=== PATIENT | male | born 1985 | race Caucasian/White ===

== ENCOUNTER 2023-01-10 09:24 | Outpatient (CLI) | payer OTHER ==
[2023-01-10 22:21] VITALS: BP 118/70
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
== END 2023-01-10 09:25 | disposition home or self-care (01) ==
LOC: SC 09:24
PROVIDERS: ATTEND Internal Medicine Pulmonary Disease
DX: G47.8 Other sleep disorders (principal)
CPT/HCPCS: 99202; 99212

== ENCOUNTER 2023-03-17 20:12 | Outpatient (CLI) | payer OTHER | END 2023-03-17 20:13 | disposition home or self-care (01) | LOC: SC 20:12 | PROVIDERS: ATTEND Internal Medicine Pulmonary Disease | DX: G47.33 Obstructive sleep apnea (adult) (pediatric) (principal); G47.61 Periodic limb movement disorder | CPT/HCPCS: 95810 ==

== ENCOUNTER 2023-05-20 08:27 | Outpatient (CLI) | payer OTHER ==
--- NOTE | 2023-05-20 08:59 | SLEEP CARE CONSULTATION ---
Information from patient questionnaire entered by Yohana Glynn. I have reviewed and concur with the information entered by Yohana Glynn. This document represents the service I personally performed and the decisions made by , Lindsey Hammond ARNP. History of Present Illness Service Date and Time: 05/20/2023826 Previous diagnosis: Mild, Obstructive Sleep Apnea-Hypopnea Syndrome AHI: 5.4 ( with RDI 20 in 2022) Reason for follow up: first compliance Equipment type: CPAP (RESMED 11, s/u 03/2023) Equipment obtained from: Other ([facility]; got initial supplies) Mask style: Nasal ([place]) Backup mask available: No (will keep old mask when replaced) Last cushion change: 1 month Prior sleep studies: Yes ([place]) Type of Sleep Study: Polysomnography (COMPLETED 03/17/23) HPI additional information: CELIA MOCTEZUMA was diagnosed to have mild, AHI 5.4, obstructive sleep apnea- hypopnea syndrome and returned today for CPAP therapy first compliance follow- up. Sleep Study - Results Type of Sleep Study: Polysomnography (COMPLETED 03/17/23) Prior sleep studies: Yes ([place]) CPAP Compliance Data - Data Reviewed with Patient Average duration of nightly device use: 7 HRS Compliance rate %: 93 (04/19/23-05/18/23; 29/30 days used) Current pressure setting (cmH2O): 4-15 (median 5.1, avg 7.4, max 8.9) Average residual AHI: 1.4 (RERA 0.0) Central apnea: 0.6 Obstructive apnea: 0.5 Hypopnea: 0.3 Average large leak: 0.5 L/min Subjective Patient concerns: reports: mask discomfort (rash, mask cushion pushing on top of nose), mask leak noise, other (rash on face). denies: aerophagia, air blowing in eyes, condensation in mask/hose, nasal congestion, dry mouth, nose, throat, epistaxis Observed to snore while using device: No Current pressure setting perceived as: comfortable On therapy, patient: reports: sleeping better, awakening more refreshed, being more awake and alert during the day, more rested overall. denies: drowsiness while driving Initial [place] Sleepiness Scale score: 11 (01/10/23) Current [place] Sleepiness Scale score: 8 (05/20/23) Allergies and Home Medications Known drug allergies: No Drug allergies reviewed: Yes Home medication list reviewed: Yes (no changes) Allergy and home medication list: Allergies No Known Drug Allergies Allergy (Verified 05/19/23 13:37) Review of Systems Review of systems same as previous: Yes (no changes) Physical Exam Vital signs obtained and entered by: YOAHNA Baron MA Blood Pressure: 118/72 (LEFT ARM) Cuff size: regular Heart Rate: 52 O2 Saturation: 98 Height: 6 ft 4 in Weight: 222 lb Weight change since last visit: 4 lbs loss Body Mass Index: 27.0 BMI Classification: Overweight Impression and Plan 1. Obstructive Sleep Apnea-Hypopnea Syndrome, mild, with good treatment compliance and good apnea control. On CPAP therapy, the patient has better sleep quality and is more rested overall. He has had some redness around his nose from where the [place] mask sits on his face. He would like to try a different style and he states he will contact his DME for assistance with that. I gave him the names of a couple of masks that he saw in the office and would like to try. The patients pressure will be changed to autoCPAP 5-9 cmH20 to reflect pressures being used. Patient advised to contact me if pressure change is uncomfortable so that it can be adjusted. Goals for apnea control discussed. Patient also asking for assistance with getting a battery backup because he goes camping a lot and wants to be able to use his CPAP. I will add this to his prescription today. Patient was very grateful for helping him to get better rest. Patient's apnea severity and rationale for treatment to reduce apnea, improve sleep quality and reduce cardiovascular and cerebrovascular events was reviewed. I also reviewed the benefit of consistent device use of CPAP for cerebrovascular disease (stro ke), depression and anxiety. 2. Overweight, unspecified. Currently patients BMI is 27. He has lost weight. Obesity increases the risk of apnea, CPAP pressure requirements and overall health risks especially cardiovascular and diabetes. Thus patient is advised to continue to try to lose weight. * Change auto CPAP pressure to 5-9 cmH2O * Battery backup for Airsense 11 * Notify me if snoring with mask or feeling that the pressure is too much or too little * Attempt to lose weight * Call this office if any problems using CPAP * Return for follow up in 1-2 months, or sooner if concerns arise Counseling Topics: Weight loss health impact Follow up with Sleep Care in: 1-2 months Visit Type: In Office Time Spent with Patient (minutes): 22 Provider Statement: I spent 100% of the Face to Face Visit with the patient with greater than 50% spent counseling the patient and coordination of care.
[2023-05-20 09:27] VITALS: BP 118/72
== END 2023-05-20 08:28 | disposition home or self-care (01) ==
LOC: SC 08:27
PROVIDERS: ATTEND Nurse Practitioner Family
DX: G47.33 Obstructive sleep apnea (adult) (pediatric) (principal); E66.3 Overweight; Z68.27 Body mass index [BMI] 27.0-27.9, adult
CPT/HCPCS: 99212; 99213

== ENCOUNTER 2023-06-01 07:45 | Outpatient (CLI) | payer OTHER | END 2023-06-01 08:00 | disposition home or self-care (01) | LOC: LAB.N 07:45 | PROVIDERS: ATTEND Family Medicine | DX: R19.7 Diarrhea, unspecified (principal) | CPT/HCPCS: 83993; 87045; 87046; 87329; 87427; 87493 ==

== ENCOUNTER 2023-07-27 08:31 | Outpatient (CLI) | payer OTHER ==
--- NOTE | 2023-07-27 08:53 | Sleep Patient Instructions ---
Sleep Center Visit Summary - Patient Visit Information Reason for Visit: Two month follow up - Patient Instructions Additional Instructions: You were here for follow up of CPAP therapy. You will be continued on CPAP therapy with pressure at 5-9 cmH2O. You should follow up with sleep care in 3 months. You may contact us sooner for any questions or concerns. - Clinic Information Contact: [facility] [address] [place] [email or web address] T: [phone]
--- NOTE | 2023-07-27 08:59 | SLEEP CARE CONSULTATION ---
Information from patient questionnaire entered by Yohana Glynn. I have reviewed and concur with the information entered by Yohaan Glynn. This document represents the service I personally performed and the decisions made by , Lindsey Hammond ARNP. History of Present Illness Service Date and Time: 07/27/2023 0831 Previous diagnosis: Mild, Obstructive Sleep Apnea-Hypopnea Syndrome AHI: 5.4 ( with RDI 20 in 2022) Reason for follow up: other (2 MONTH F/U) Equipment type: CPAP (RESMED 11, s/u 03/2023) Equipment obtained from: Other ([facility]; getting supplies) Mask style: Nasal (3B Si[place]) Backup mask available: No (will keep old mask when replaced) Last cushion change: 1 week Prior sleep studies: Yes ([place]) Type of Sleep Study: Polysomnography (COMPLETED 03/17/23) HPI additional information: CELIA MOCTEZUMA was diagnosed to have mild, AHI 5.4 with RDI 20, obstructive sleep apnea-hypopnea syndrome and returned today for CPAP therapy two month follow-up. Sleep Study - Results Type of Sleep Study: Polysomnography (COMPLETED 03/17/23) Prior sleep studies: Yes ([place]) CPAP Compliance Data - Data Reviewed with Patient Average duration of nightly device use: 7 HRS 9 MINS Compliance rate %: 93 (05/26/23-07/24/23; 58/60 days used) Current pressure setting (cmH2O): 5-9 Average residual AHI: 1.9 Central apnea: 0.8 Obstructive apnea: 0.5 Hypopnea: 0.4 Average large leak: 2.3 L/min Subjective Missed days of use due to: reports: travel (camping) Patient concerns: reports: mask discomfort, air blowing in eyes, condensation in mask/hose, dry mouth, nose, throat (occasional). denies: aerophagia, mask leak noise, nasal congestion, epistaxis Observed to snore while using device: No Current pressure setting perceived as: comfortable On therapy, patient: reports: sleeping better, awakening more refreshed, being more awake and alert during the day, more rested overall. denies: drowsiness while driving Initial [place] Sleepiness Scale score: 11 (01/10/23) Current [place] Sleepiness Scale score: 7 Allergies and Home Medications Known drug allergies: No Drug allergies reviewed: Yes Home medication list reviewed: Yes (no changes) Allergy and home medication list: Allergies No Known Drug Allergies Allergy (Verified 07/26/23 14:25) Review of Systems Review of systems same as previous: Yes (no changes) Physical Exam Vital signs obtained and entered by: Lindsey Richmond NP Blood Pressure: 117/81 Cuff size: wrist (left) Heart Rate: 60 O2 Saturation: 99 Height: 6 ft 4 in Weight: 229 lb 3.2 oz Body Mass Index: 27.8 BMI Classification: Overweight Impression and Plan 1. Obstructive Sleep Apnea-Hypopnea Syndrome, mild, with good treatment compliance and good apnea control. On CPAP therapy, the patient has better sleep quality and is more rested overall. He has significant improvement of his sleep apnea and is very satisfied with CPAP use. He has had to adjust his humidity and heated hose due to condensation and dry mouth but states he seems to be able to find a good balance.He does want to try a different mask with the tubing at the top of his head instead about the front of the mask. He is going to call his DME to try to switch up the mask when he is eligible for supplies. Patient's apnea severity and rationale for treatment to reduce apnea, improve sleep quality and reduce cardiovascular and cerebrovascular events was reviewed. I also reviewed the benefit of consistent device use of CPAP for cerebrovascular disease (stroke), depression and anxiety. 2. Overweight, unspecified. Currently patients BMI is 27.8. Obesity increases the risk of apnea, CPAP pressure requirements and overall health risks especially cardiovascular and diabetes. Thus patient is advised to lose weight. * Continue auto CPAP pressure at 5-9 cmH2O * Notify me if snoring with mask or feeling that the pressure is too much or too little * Attempt to lose weight * Call this office if any problems using CPAP * Return for follow up in 3 months, or sooner if concerns arise Counseling Topics: Spare mask, Weight loss health impact Visit Type: In Office Time Spent with Patient (minutes): 24 Provider Statement: I spent 100% of the Face to Face Visit with the patient with greater than 50% spent counseling the patient and coordination of care.
[2023-07-27 09:02] VITALS: BP 117/81; O2SAT 99
== END 2023-07-27 08:32 | disposition home or self-care (01) ==
LOC: SC 08:31
PROVIDERS: ATTEND Nurse Practitioner Family
DX: G47.33 Obstructive sleep apnea (adult) (pediatric) (principal)
CPT/HCPCS: 99212; 99213

== ENCOUNTER 2023-10-28 08:35 | Outpatient (CLI) | payer OTHER ==
--- NOTE | 2023-10-28 08:53 | Sleep Patient Instructions ---
Sleep Center Visit Summary - Patient Visit Information Reason for Visit: 3 month followup for PAP therapy - Patient Instructions Additional Instructions: You were here for follow up of CPAP therapy. You will be continued on CPAP therapy with pressure at 6-9 cmH2O. Please let us know if the pressure change is uncomfortable and we can make further adjustments of the pressure. You should follow up with sleep care in 6 months. You may contact us sooner for any questions or concerns. - Clinic Information Contact: [facility] [address] [place] [id number] [email or web address] T: [phone]
--- NOTE | 2023-10-28 08:57 | SLEEP CARE CONSULTATION ---
Information from patient questionnaire entered by Yohana Glynn. I have reviewed and concur with the information entered by Yohana Glynn. This document represents the service I personally performed and the decisions made by me, Lindsey Hammond ARNP. History of Present Illness Service Date and Time: 10/28/2023 0835 Previous diagnosis: Mild, Obstructive Sleep Apnea-Hypopnea Syndrome AHI: 5.4 Reason for follow up: three month (F/U) Equipment type: CPAP (RESMED Airsense 11, s/u ) Equipment obtained from: Other ([facility]; getting supplies) Mask style: Nasal Mask brand: Resmed (Airfit [id number]) Backup mask available: Yes (other mask) Last cushion change: recently, does monthly Prior sleep studies: Yes ([place]) Type of Sleep Study: Polysomnography (COMPLETED 03/17/23) HPI additional information: CELIA MOCTEZUMA was diagnosed to have mild, AHI 5.4 with RDI 20, obstructive sleep apnea-hypopnea syndrome and returned today for CPAP therapy three month follow-up. Sleep Study - Results Type of Sleep Study: Polysomnography (COMPLETED 03/17/23) Prior sleep studies: Yes ([place]) CPAP Compliance Data - Data Reviewed with Patient Average duration of nightly device use: 6 HRS 45 MINS Compliance rate %: 96 (07/28/23-10/25/23; 89/90 days used) Current pressure setting (cmH2O): 5-9 Average residual AHI: 2.0 Central apnea: 0.8 Obstructive apnea: 0.6 Hypopnea: 0.5 Average large leak: 2.6 L/min Subjective Missed days of use due to: reports: travel Patient concerns: reports: nasal congestion (not just with CPAP). denies: aerophagia, mask discomfort, air blowing in eyes, mask leak noise, condensation in mask/hose, dry mouth, nose, throat, epistaxis Observed to snore while using device: No Current pressure setting perceived as: too low On therapy, patient: reports: sleeping better, awakening more refreshed, being more awake and alert during the day, more rested overall. denies: drowsiness while driving Initial [place] Sleepiness Scale score: 11 (01/10/23) Current [place] Sleepiness Scale score: 5 (10/28/23) Allergies and Home Medications Known drug allergies: No Drug allergies reviewed: Yes Home medication list reviewed: Yes (no changes) Allergy and home medication list: Allergies No Known Drug Allergies Allergy (Verified 10/27/23 12:44) Review of Systems Review of systems same as previous: Yes (NO CHANGE) Physical Exam Vital signs obtained and entered by: YOHANA Baron MA Blood Pressure: 120/62 (LEFT ARM) Cuff size: regular Heart Rate: 62 O2 Saturation: 100 Height: 6 ft 4 in Weight: 230 lb Body Mass Index: 28.0 BMI Classification: Overweight Impression and Plan 1. Obstructive Sleep Apnea-Hypopnea Syndrome, mild, with good treatment compliance and good apnea control. On CPAP therapy, the patient has better sleep quality and is more rested overall. He does feel that he needs more pressure when he puts the mask on because it takes a while for him to get enough air. His ramp is off. I will adjust his pressure to 6-9 cm H2O to reduce air hunger. He will let me know if this pressure changes uncomfortable or if he feels he still needs more air. Patient has significant improvement of their sleep apnea and is satisfied with current CPAP therapy. Patient denies problems with oral dryness, nasal congestion, epistaxis, skin irritation or aerophagia. Patient's apnea severity and rationale for treatment to reduce apnea, improve sleep quality and reduce cardiovascular and cerebrovascular events was reviewed. I also reviewed the benefit of consistent device use of CPAP for cerebrovascular disease (stroke), depression and anxiety. 2. Overweight, unspecified. Currently patients BMI is 28. Obesity increases the risk of apnea, CPAP pressure requirements and overall health risks especially cardiovascular and diabetes. Thus patient is advised to lose weight. * Change auto CPAP pressure to 6-9 cmH2O * Notify me if snoring with mask or feeling that the pressure is too much or too little * Attempt to lose weight * Call this office if any problems using CPAP * Return for follow up in 6 months, or sooner if concerns arise Counseling Topics: Spare mask, Weight loss health impact Follow up with Sleep Care in: 6 months Visit Type: In Office Time Spent with Patient (minutes): 20 Provider Statement: I spent 100% of the Face to Face Visit with the patient with greater than 50% spent counseling the patient and coordination of care.
[2023-10-28 09:12] VITALS: BP 120/62; O2SAT 100
== END 2023-10-28 08:36 | disposition home or self-care (01) ==
LOC: SC 08:35
PROVIDERS: ATTEND Nurse Practitioner Family
DX: G47.33 Obstructive sleep apnea (adult) (pediatric) (principal); E66.3 Overweight; Z68.28 Body mass index [BMI] 28.0-28.9, adult
CPT/HCPCS: 99212; 99213